=== PATIENT | female | born 1965 | race African-American/Black ===

== ENCOUNTER 2018-05-19 11:42 | Emergency (ER) | payer BC ==
[2018-05-19 11:47] VITALS: BP 159/74; PULSE 64; TEMP 98.8; BMI 27.4
--- NOTE | 2018-05-19 13:14 | PDOC ---
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 She drifted in and out of sleep and awoke at 0900 AM but continued to feel fatigued, nauseous and lightheaded, she was concerned as she had thought her symptoms would be relieved by sleeping. She notes that she is sexually active w/ LNMP: 05/16/18. The patient denies chest pain, SOB, abdominal pain, dysuria, hematuria, diarrhea, constipation. While patient was waiting to be seen in the ED, she walked up to the cafeteria and drank a tea and croissant, which is the first thing she has eaten today. At bedside she reports feeling much improved. PMHX: as in HPI Meds: see below Allergies: none Tob: none Etoh: none Rec drugs: none PCP: none Past History - Past Medical History Allergies/Adverse Reactions: Allergies Allergy/AdvReac Type Severity Reaction Status Date / Time No Known Allergies Allergy Verified 05/19/18 11:43 COPD: No - Immunization History Immunization Up to Date: Yes - Suicide/Smoking/Psychosocial Hx Smoking History: Never smoked Review of Systems - Review of Systems Able to Perform ROS?: Yes Is the patient limited Indian proficient: No Constitutional: No: Chills, Diaphoresis, Fever HEENTM: No: Blurred Vision, Tinnitus Respiratory: No: Cough, Orthopnea, Shortness of Breath ABD/GI: Yes: Nausea. No: Diarrhea, Vomiting *Physical Exam - Vital Signs Last Vital Signs Temp Pulse Resp BP Pulse Ox 98.8 F 64 18 159/74 100 05/19/18 11:44 05/19/18 11:44 05/19/18 11:44 05/19/18 11:44 05/19/18 11:44 - Physical Exam Comments: 05/19/18 16:40 GENERAL: Awake, alert, and fully oriented, in no acute distress HEAD: No signs of trauma, normocephalic, atraumatic EYES: EOMI, sclera anicteric, conjunctiva clear ENT: oropharynx clear without exudates. Moist mucosa NECK: Normal ROM, supple LUNGS: No distress, speaks full sentences, clear to auscultation bilaterally HEART: Regular rate and rhythm, normal S1 and S2, no murmurs, rubs or gallops, peripheral pulses normal and equal bilaterally. ABDOMEN: Soft, nontender, normoactive bowel sounds. No guarding, no rebound. No masses EXTREMITIES : Normal inspection, Normal range of motion, no edema. No clubbing or cyanosis. NEUROLOGICAL: Cranial nerves II through XII grossly intact. 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 She drifted in and out of sleep and awoke at 0900Am but continued to feel fatigued, nauseous and lightheaded, she was concerned as she had thought her symptoms would be relieved by sleeping. DDX including but not limited to: dehydration vs anemia vs fatigue vs arrythmia vs UTI vs W/U: - cbc, cmp - ua, ucx, upreg - ekg TX: - 1L NS ED Course: 05/19/18 13:13 This lead technical writer went to evaluate patient but patient left floor to get food in the cafeteria. 05/19/18 14:18 Patient reports history of feeling overworked and tired. 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 Will evaluate for fatigue, dehydration, arrythmia, UTI and . CBC: Hb - 14 UA: unremarkable Upreg: negative Patient reports that she is feeling much improved after eating and with fluids. Pt signed out to Dr. Villa. *DC/Admit/Observation/Transfer Diagnosis at time of Disposition: Nausea, Lightheaded, Fatigue - Discharge Dispostion Disposition: HOME Condition at time of disposition: Stable Decision to Admit order: No - Referrals Referrals: ON STAFF,NOT [Primary Care Provider] - - Patient Instructions Printed Discharge Instructions: DI for Dehydration -- Adult, DI for Fatigue, DI for Nausea -- Adult Additional Instructions: You were seen in the ED for complaints of fatigue, nausea and lightheadedness. In the ED you were evaluated with labwork. Your results were unremarkable. There does not appear to be an acute need for immediate hospitalization. You are advised to follow up with your Primary Care Physician within 1 week. Return to the ED immediately if you experience worsening nausea, lightheadedness , loss of consciousness, headache, chest pain, shortness of breath or fever. - Post Discharge Activity Forms/Work/School Notes: Back to Work, Back to School
[2018-05-19] MEDS ORDERED: SODIUM CHLORIDE 1,000 ML IV SCH (13:45)
[2018-05-19 14:45] LABS: BASO % 1.4 % (0-2.0); EOS % 2.4 % (0-4.5); HEMATOCRIT 43.3 % (32.4-45.2); HEMOGLOBIN 14.1 GM/dL (10.7-15.3); LYMPH % 38.3 % (8-40); MCH 29.1 pg (25.7-33.7); MCHC 32.7 g/dl (32.0-36.0); MEAN CELL VOLUME 89.1 fl (80-96); MEAN PLT VOLUME 9.1 fl (7.5-11.1); MONO % 5.8 % (3.8-10.2); NEUT % 52.1 % (42.8-82.8); PLATELET COUNT 293 K/MM3 (134-434); RBC 4.86 M/mm3 (3.60-5.2); RDW 13.7 % (11.6-15.6); WHITE BLOOD COUNT 5.9 K/mm3 (4.0-10.0)
[2018-05-19 15:21] LABS: URINE APPEARANCE CLEAR; URINE BILIRUBIN NEGATIVE (<2.0 mg/dL); URINE COLOR LTYELLOW; URINE GLUCOSE (UA) NEGATIVE (NEGATIVE); URINE KETONE NEGATIVE (NEGATIVE); URINE LEUK ESTERASE TRACE (NEGATIVE); URINE NITRITE NEGATIVE (NEGATIVE); URINE PROTEIN NEGATIVE (NEGATIVE); URINE UROBILINOGEN NEGATIVE mg/dL (0.2-1.0)
[2018-05-19 15:32] LABS: EPI CELLS RARE /HPF (FEW)
--- NOTE | 2018-05-19 16:37 | PDOC ---
Attending Attestation - Resident Resident Name: Nikia Manriquez - ED Attending Attestation I have performed the following: I have examined & evaluated the patient, The case was reviewed & discussed with the resident, I agree w/resident's findings & plan, Exceptions are as noted - HPI HPI: 05/19/18 16:35 The patient is a 53 year old female, with a significant past medical history of anemia, who presents to the emergency department with dizziness and nausea since this morning. 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 She states she went to sleep but would intermittently wake up with the same dizziness and nausea. She states she called her daughter who lives in her building, however, secondary to worsening symptoms after around 9AM, the patient decided to come to the ED for evaluation. 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 She denies headache, focal weakness/ numbness. She reports symptoms have completely resolved after she ate a croissant while in the ED. Now is asymptomatic. Pt states because she has been so tired, she has missed 2 days of classes and needs a note today so she can drop the class. LMP 05/16/18. The patient denies chest pain, shortness of breath, headache. The patient denies fever, chills, vomit, diarrhea and constipation. The patient denies dysuria, frequency, urgency and hematuria. Allergies: NKDA Social history: denies toxic habits - Physicial Exam PE: 05/19/18 18:41 GENERAL: Awake, alert, and fully oriented, in no acute distress HEAD: No signs of trauma EYES: PERRLA, EOMI, sclera anicteric, conjunctiva clear ENT: Auricles normal inspection, hearing grossly normal, nares patent, oropharynx clear without exudates. Moist mucosa NECK: Normal ROM, supple, no lymphadenopathy, JVD, or masses LUNGS: Breath sounds equal, clear to auscultation bilaterally. No wheezes, and no crackles HEART: Regular rate and rhythm, normal S1 and S2, no murmurs, rubs or gallops ABDOMEN: Soft, nontender, normoactive bowel sounds. No guarding, no rebound. No masses EXTREMITIES: Normal range of motion, no edema. No clubbing or cyanosis. No cords, erythema, or tenderness NEUROLOGICAL: Normal speech, cranial nerves intact, negative pronator drift, 5/ 5 strength in all 4 extremities, normal sensation to light touch in all 4 extremities, normal cerebellar exam, normal gait, normal reflexes and tone SKIN: Warm, Dry, normal turgor, no rashes or lesions noted. - Medical Decision Making 05/19/18 18:31 53yo F hx anemia presents with dizziness and nausea. Feels better now after eating and 1L fluids. BP elevated to 150s, otherwise wnl. Exam completely normal , no nystagmus or reproducible dizziness. Possibly mild dehydration vs peripheral vertigo. Resolution of sxs, lack of ritter, and cva RF speaks against central etiologies. Labs wnl, however CMP has hemolyzed. Rpt drawn, EKG pending , if normal and pt continues to be asymptomatic, likely DC. 05/19/18 19:03 CMP, EKG pending Case signed out to overnight attending for f/u on pending diagnostics and dispo
[2018-05-19 19:30] LABS: ALBUMIN 3.4 g/dl (3.4-5.0); ALK PHOS 93 U/L (45-117); ANION GAP 6 MMOL/L (8-16); BILIRUBIN,TOTAL 0.3 mg/dL (0.2-1); BLOOD UREA NITROGEN 12 mg/dL (7-18); CALCIUM 8.5 mg/dL (8.5-10.1); CHLORIDE 108 mmol/L (98-107); CO2 25 mmol/L (21-32); CREATININE 0.6 mg/dL (0.55-1.3); GLUCOSE,RANDOM 109 mg/dL (74-106); POTASSIUM 4.1 mmol/L (3.5-5.1); SGOT/AST 20 U/L (15-37); SGPT/ALT 26 U/L (13-61); SODIUM 138 mmol/L (136-145)
--- NOTE | 2018-05-19 19:45 | PDOC ---
*Physical Exam - Vital Signs Last Vital Signs Temp Pulse Resp BP Pulse Ox 98.8 F 64 18 159/74 100 05/19/18 11:44 05/19/18 11:44 05/19/18 11:44 05/19/18 11:44 05/19/18 11:44 ED Treatment Course - LABORATORY CBC & Chemistry Diagram: 05/19/18 14:30 05/19/18 18:20 - ADDITIONAL ORDERS Additional order review: Laboratory Results 05/19/18 05/19/18 05/19/18 18:20 14:30 14:30 Sodium 138 Cancelled Potassium 4.1 Cancelled Chloride 108 H Cancelled Carbon Dioxide 25 Cancelled Anion Gap 6 L Cancelled BUN 12 Cancelled Creatinine 0.6 Cancelled Creat Clearance w eGFR > 60 Cancelled Random Glucose 109 H Cancelled Calcium 8.5 Cancelled Total Bilirubin 0.3 Cancelled AST 20 Cancelled ALT 26 Cancelled Alkaline Phosphatase 93 Cancelled Total Protein 8.0 Cancelled Albumin 3.4 Cancelled Urine Color Urine Appearance Urine pH Ur Specific [place] Urine Protein Urine Glucose (UA) Urine Ketones Urine Blood Urine Nitrite Urine Bilirubin Urine Urobilinogen Ur Leukocyte Esterase Urine WBC (Auto) Urine RBC (Auto) Ur Epithelial Cells Urine HCG, Qual Negative 05/19/18 14:30 Sodium Potassium Chloride Carbon Dioxide Anion Gap BUN Creatinine Creat Clearance w eGFR Random Glucose Calcium Total Bilirubin AST ALT Alkaline Phosphatase Total Protein Albumin Urine Color Ltyellow Urine Appearance Clear Urine pH 6.0 Ur Specific [place] 1.014 Urine Protein Negative Urine Glucose (UA) Negative Urine Ketones Negative Urine Blood 1+ H Urine Nitrite Negative Urine Bilirubin Negative Urine Urobilinogen Negative Ur Leukocyte Esterase Trace Urine WBC (Auto) 1 Urine RBC (Auto) <1 Ur Epithelial Cells Rare Urine HCG, Qual 05/19/18 14:30 RBC 4.86 MCV 89.1 MCHC 32.7 RDW 13.7 MPV 9.1 Neutrophils % 52.1 Lymphocytes % 38.3 Monocytes % 5.8 Eosinophils % 2.4 Basophils % 1.4 Medical Decision Making - Medical Decision Making 05/19/18 20:02 53 year old female with history of anemia presented to ED complaining of lightheadedness beginning at 0200 today. 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 Pt received 1L NS. Initial Vital Signs Temp Pulse Resp BP Pulse Ox 98.8 F 64 18 159/74 100 05/19/18 11:44 05/19/18 11:44 05/19/18 11:44 05/19/18 11:44 05/19/18 11:44 Afebrile. No tachycardia. No bradycardia. No tachypnea. No hypoxia on room air. Mild HTN. EKG performed at 2038 - rate 62, regulary rhythm, normal axis, normal intervals , non-specific ST changes. CBC WBC 5.9 K/mm3 (4.0-10.0) 05/19/18 14:30 RBC 4.86 M/mm3 (3.60-5.2) 05/19/18 14:30 Hgb 14.1 GM/dL (10.7-15.3) 05/19/18 14:30 Hct 43.3 % (32.4-45.2) 05/19/18 14:30 MCV 89.1 fl (80-96) 05/19/18 14:30 MCH 29.1 pg (25.7-33.7) 05/19/18 14:30 MCHC 32.7 g/dl (32.0-36.0) 05/19/18 14:30 RDW 13.7 % (11.6-15.6) 05/19/18 14:30 Plt Count 293 K/MM3 (134-434) 05/19/18 14:30 MPV 9.1 fl (7.5-11.1) 05/19/18 14:30 Absolute Neuts (auto) 3.1 K/mm3 (1.5-8.0) 05/19/18 14:30 Neutrophils % 52.1 % (42.8-82.8) 05/19/18 14:30 Lymphocytes % 38.3 % (8-40) 05/19/18 14:30 Monocytes % 5.8 % (3.8-10.2) 05/19/18 14:30 Eosinophils % 2.4 % (0-4.5) 05/19/18 14:30 Basophils % 1.4 % (0-2.0) 05/19/18 14:30 Nucleated RBC % 0 % (0-0) 05/19/18 14:30 No anemia. No leukocytosis. No thrombocytopenia. CMP Sodium 138 mmol/L (136-145) 05/19/18 18:20 Potassium 4.1 mmol/L (3.5-5.1) 05/19/18 18:20 Chloride 108 mmol/L (98-107) H 05/19/18 18:20 Carbon Dioxide 25 mmol/L (21-32) 05/19/18 18:20 Anion Gap 6 MMOL/L (8-16) L 05/19/18 18:20 BUN 12 mg/dL (7-18) 05/19/18 18:20 Creatinine 0.6 mg/dL (0.55-1.3) 05/19/18 18:20 Creat Clearance w eGFR > 60 (>60) 05/19/18 18:20 Random Glucose 109 mg/dL (74-106) H 05/19/18 18:20 Calcium 8.5 mg/dL (8.5-10.1) 05/19/18 18:20 Total Bilirubin 0.3 mg/dL (0.2-1) 05/19/18 18:20 AST 20 U/L (15-37) 05/19/18 18:20 ALT 26 U/L (13-61) 05/19/18 18:20 Alkaline Phosphatase 93 U/L (45-117) 05/19/18 18:20 Total Protein 8.0 g/dl (6.4-8.2) 05/19/18 18:20 Albumin 3.4 g/dl (3.4-5.0) 05/19/18 18:20 No electrolyte abnormalities. No acute kidney injury. No hypoglycemia. No transaminitis. Urine Test Results Urine Color Ltyellow 05/19/18 14:30 Urine Appearance Clear 05/19/18 14:30 Urine pH 6.0 (5.0-8.0) 05/19/18 14:30 Ur Specific [place] 1.014 (1.010-1.035) 05/19/18 14:30 Urine Protein Negative (NEGATIVE) 05/19/18 14:30 Urine Glucose (UA) Negative (NEGATIVE) 05/19/18 14:30 Urine Ketones Negative (NEGATIVE) 05/19/18 14:30 Urine Blood 1+ (NEGATIVE) H 05/19/18 14:30 Urine Nitrite Negative (NEGATIVE) 05/19/18 14:30 Urine Bilirubin Negative (<2.0 mg/dL) 05/19/18 14:30 Ur Leukocyte Esterase Trace (NEGATIVE) 05/19/18 14:30 Ur Epithelial Cells Rare /HPF (FEW) 05/19/18 14:30 WBC =1. Pt is asymptomatic. - No evidence of urinary tract infection. Urine test negative. I spoke with the patient about the results, she stated she understood. I spoke with the patient about the plan for care, she stated she understood. Pt will be discharged. *DC/Admit/Observation/Transfer Diagnosis at time of Disposition: Nausea, Lightheaded, Fatigue - Discharge Dispostion Disposition: HOME Condition at time of disposition: Stable - Referrals Referrals: ON STAFF,NOT [Primary Care Provider] - - Patient Instructions Printed Discharge Instructions: DI for Dehydration -- Adult, DI for Fatigue, DI for Nausea -- Adult Additional Instructions: You were seen in the ED for complaints of fatigue, nausea and lightheadedness. In the ED you were evaluated with labwork. Your results were unremarkable. There does not appear to be an acute need for immediate hospitalization. You are advised to follow up with your Primary Care Physician within 1 week. Return to the ED immediately if you experience worsening nausea, lightheadedness , loss of consciousness, headache, chest pain, shortness of breath or fever. - Post Discharge Activity Forms/Work/School Notes: Back to Work, Back to School
--- NOTE | 2018-05-20 09:25 | EKG ---
Test Reason : Blood Pressure : / mmHG Vent. Rate : 062 BPM Atrial Rate : 062 BPM P-R Int : 172 ms QRS Dur : 074 ms QT Int : 416 ms P-R-T Axes : 051 -19 023 degrees QTc Int : 422 ms NORMAL SINUS RHYTHM LEFTWARD AXIS Confirmed by MANJU LOREDO MD ([id number]) on 05/20/2018 9:25:15 AM Referred By: Confirmed By:MANJU LOREDO MD
== END 2018-05-19 21:05 | disposition home or self-care (01) ==
LOC: JER 11:42
DX: R53.83 Other fatigue (principal); R42 Dizziness and giddiness; R11.0 Nausea; Z86.2 Personal history of diseases of the blood and blood-forming organs and certain disorders involving the immune mechanism
CPT/HCPCS: 36415; 80053; 81003; 81015; 84484; 84703; 85025; 87086; 93005; 93010; 99281-25; J7030